=== PATIENT | female | born 1985 | race Caucasian/White ===

== ENCOUNTER → 2019-12-15 09:51 | Outpatient (BNVA) | payer BC, SELFPAY | PROVIDERS: Family Provider Registered Nurse; PCP Registered Nurse; Visit Provider Registered Nurse | DX: R53.83 Other fatigue (principal); Z01.419 Encounter for gynecological examination (general) (routine) without abnormal findings; E66.9 Obesity, unspecified | CPT/HCPCS: 84443; 85025 ==

== ENCOUNTER → 2020-08-30 16:09 | Outpatient (BNVA) | payer BC, SELFPAY | PROVIDERS: Family Provider Registered Nurse; PCP Registered Nurse; Visit Provider Registered Nurse | DX: R50.9 Fever, unspecified (principal) | CPT/HCPCS: 87400 ==

== ENCOUNTER → 2020-10-01 09:22 | Outpatient (BNVA) | payer BC, SELFPAY | PROVIDERS: Family Provider Registered Nurse; PCP Registered Nurse; Visit Provider Registered Nurse | DX: R10.9 Unspecified abdominal pain (principal); N76.0 Acute vaginitis; B96.89 Other specified bacterial agents as the cause of diseases classified elsewhere | CPT/HCPCS: 81000 ==

== ENCOUNTER → 2020-11-19 08:50 | Outpatient (BNVA) | payer BC, SELFPAY | PROVIDERS: Family Provider Registered Nurse; PCP Registered Nurse; Visit Provider Registered Nurse | DX: R68.89 Other general symptoms and signs (principal); K52.9 Noninfective gastroenteritis and colitis, unspecified | CPT/HCPCS: 87400 ==

== ENCOUNTER → 2021-04-14 11:12 | Outpatient (BNVA) | payer BC, SELFPAY | PROVIDERS: Family Provider Registered Nurse; PCP Registered Nurse; Visit Provider Registered Nurse | DX: E53.8 Deficiency of other specified B group vitamins (principal); E55.9 Vitamin D deficiency, unspecified; R53.83 Other fatigue; F41.1 Generalized anxiety disorder | CPT/HCPCS: 82306; 82607 ==

== ENCOUNTER → 2021-07-01 11:13 | Outpatient (BNVA) | payer BC, SELFPAY | PROVIDERS: Family Provider Registered Nurse; PCP Registered Nurse; Visit Provider Registered Nurse | DX: J02.9 Acute pharyngitis, unspecified (principal); R53.83 Other fatigue; R50.9 Fever, unspecified | CPT/HCPCS: 87635; 87880 ==

== ENCOUNTER → 2021-07-11 08:36 | Outpatient (BNVA) | payer BC, SELFPAY | PROVIDERS: Family Provider Registered Nurse; PCP Registered Nurse; Visit Provider Registered Nurse | DX: R50.9 Fever, unspecified (principal); R53.83 Other fatigue; R31.9 Hematuria, unspecified; R39.9 Unspecified symptoms and signs involving the genitourinary system | CPT/HCPCS: 81000; 87086 ==

== ENCOUNTER → 2021-11-07 10:31 | Outpatient (BNVA) | payer BC, SELFPAY | PROVIDERS: Family Provider Registered Nurse; PCP Registered Nurse; Visit Provider Registered Nurse | DX: Z11.52 Encounter for screening for COVID-19 (principal) | CPT/HCPCS: 87635 ==

== ENCOUNTER → 2022-02-15 15:04 | Outpatient (BNVA) | payer BC, SELFPAY | PROVIDERS: Family Provider Registered Nurse; PCP Registered Nurse; Visit Provider Registered Nurse | DX: R10.9 Unspecified abdominal pain (principal); R39.9 Unspecified symptoms and signs involving the genitourinary system | CPT/HCPCS: 81000 ==

== ENCOUNTER → 2022-06-25 12:05 | Outpatient (BNVA) | payer BC, SELFPAY | PROVIDERS: Family Provider Registered Nurse; PCP Registered Nurse; Visit Provider Family Medicine | DX: J32.9 Chronic sinusitis, unspecified (principal); J01.90 Acute sinusitis, unspecified | CPT/HCPCS: 87426 ==

== ENCOUNTER → 2022-07-25 08:50 | Outpatient (BNVA) | payer BC, SELFPAY | PROVIDERS: Family Provider Registered Nurse; PCP Registered Nurse; Visit Provider Obstetrics & Gynecology | DX: N39.46 Mixed incontinence (principal); N95.1 Menopausal and female climacteric states; E89.40 Asymptomatic postprocedural ovarian failure | CPT/HCPCS: 81000 ==

== ENCOUNTER → 2022-10-05 15:29 | Outpatient (BNVA) | payer BC, SELFPAY | PROVIDERS: Family Provider Registered Nurse; PCP Registered Nurse; Visit Provider Registered Nurse | DX: R05.9 Cough, unspecified (principal); B34.9 Viral infection, unspecified | CPT/HCPCS: 87400; 87426 ==

== ENCOUNTER 2022-10-18 13:00 | Observation (INO) | payer BC, OTHER, SELFPAY ==
[2022-10-16 10:25] VITALS: BMI 26.6
[2022-10-16 10:44] LABS: Add Urine Microscopic? NO; Charge for UA Resulting for Rev
[2022-10-16 10:49] LABS: Basophils # 0.1 10^3/uL (0.0-0.1); Basophils % 0.8 %; Eosinophils # 0.2 10^3/uL (0.0-0.8); Eosinophils % 3.9 %; Hematocrit 39.7 % (37.0-47.0); Hemoglobin 12.9 g/dL (11.5-15.3); Lymphocytes # 2.8 10^3/uL (0.8-4.8); Lymphocytes % 47.4 %; Mean Corpuscular HGB Conc 32.5 g/dL (30.0-36.0); Mean Corpuscular Hemoglobin 28.7 pg (28.0-34.0); Mean Corpuscular Volume 88.4 fl (81-99); Mean Platelet Volume 11.5 fL (7.4-10.4); Monocytes # 0.3 10^3/uL (0.2-0.9); Monocytes % 4.6 %; Neutrophils # 2.55 10^3/uL (1.8-7.7); Neutrophils % 43.3 %; Nucleated Red Blood Cells % 0 %; Platelet Count 244 10^3/cmm (130-400); Red Blood Count 4.49 10^6/uL (4.1-5.3); Red Cell Distribution Width 12.8 % (12.1-15.1); White Blood Count 5.9 10^3/uL (4.0-10.0)
[2022-10-16 10:49] LABS: Bilirubin Urine Neg (Negative); Blood Urine Neg (Negative); Glucose Urine UA Norm (Normal); Ketones Urine 1+ (Negative); Leukocyte Esterase Urine Negative (Negative); Nitrate Urine Negative (Negative); Protein Urine Neg (Negative); Urine Appearance Clear (CLEAR); Urine Color Yellow (Yellow); Urobilinogen Urine Norm (Negative); pH Urine 5 (5-7)
--- NOTE | 2022-10-16 11:11 | ANES.PREANE2 ---
Pre-Anesthetic Assessment Height/Weight: Height 1.63 m Weight 70.307 kg Operation Date: 10/18/22 09:50 Proposed Procedures p Sling Single Incision Sling [id number],N39.3(Not Applicable) - Wilbert Sánchez MD Familial anesthetic complications: none Was Beta Vaughn taken within 24 hours: N/A Was Clonidine taken within 24 hours: N/A Social No alcohol and No tobacco Exam alert, oriented x 3, clear to auscultation bilaterally and regular rate & rhythm Airway Submandibular: within normal limits Cervical ROM: within normal limits Mallampati: Class II Dentition: full Pulmonary Asthma Neuropsych Anxiety Anesthetic Plan ASA status: 2 Anesthesia: General Medications/Allergies Home Medications Medication Instructions Recorded Confirmed Last Taken Type estradiol 1 mg tablet 2 mg PO DAILY #90 tabs 07/25/22 10/16/22 10/15/22 Rx estradiol 0.01% (0.1 mg/gram) 1 g vaginal DAILY Surgical 08/11/22 10/16/22 10/15/22 Rx vaginal cream menopause vaginal dryness #42.5 grams tirzepatide 5 mg/0.5 mL 5 mg (0.5 mL) SUBCUT ONCE obesity 09/25/22 10/16/22 10/14/22 Rx subcutaneous pen injector 30 days #4 ea escitalopram oxalate 10 mg tablet 10 mg PO DAILY 10/16/22 10/16/22 10/15/22 History hydroxyzine HCl 25 mg tablet 25 mg PO DAILY 10/16/22 10/16/22 10/15/22 History montelukast 10 mg tablet 10 mg PO DAILY 10/16/22 10/16/22 10/15/22 History oxybutynin chloride 5 mg 5 mg PO DAILY 10/16/22 10/16/22 10/15/22 History tablet,extended release 24 hr Allergies Allergy/AdvReac Type Severity Reaction Status Date / Time hydrocodone Allergy Mild dizziness Verified 10/05/22 15:27 and vomiting Sulfa (Sulfonamide Allergy Mild vomiting Verified 10/05/22 15:27 Antibiotics) adhesive Allergy liquid tape Verified 10/05/22 15:27 morphine Allergy hives, Verified 10/05/22 15:27 dizziness [facility] Anesthesia Medical History Endometriosis Treated by [facility] in 05/2019. Gastroesophageal reflux Surgical menopause Surgical History H/O tubal ligation (10/19/15) Laparoscopic tubal fulguration. Performed by Dr. Young at [facility] [facility] in [place], [place]. Hx of appendectomy S/P laparoscopic assisted vaginal hysterectomy (LAVH) (06/17/19) LAVH with BSO. DX: Endometriosis. Performed by Dr. Young at [facility] in [place], [place]. S/P laparoscopic cholecystectomy (~04/2007) Performed at [facility] in [place], [place] S/P laparoscopy (09/24/18) Laparoscopic cautery of endometriosis. DX: Chronic pelvic pain. Performed by Dr. Young at [facility] [place] in [place], [place]. Findings: Powder burn lesions consistent with endometriosis of the posterior cul-de-sac. S/P tonsillectomy (~06/2013) Performed at [facility] in [place], [place]. Family History Father Hypertension Mother Hypertension FH: hypercholesterolemia Grandmother Diabetes maternal and paternal Cancer colon cancer, maternal Clotting disorder maternal Stroke maternal Heart disease maternal and paternal Grandfather Heart disease maternal and paternal Colon cancer maternal great, 80 Denies family history of Ovarian cancer Breast cancer Anesthesia complication Bleeding disorder Uterine cancer Social History Smoking and tobacco status: never smoked Alcohol intake: never Data Anesthesia 10/16/22 10:33 10/16/22 10:33 Short CBC 10/16/22 Range/Units 10:33 WBC 5.9 (4.0-10.0) 10^3/uL Hgb 12.9 (11.5-15.3) g/dL Hct 39.7 (37.0-47.0) % MCV 88.4 (81-99) fl Plt Count 244 (130-400) 10^3/cmm Neut % (Auto) 43.3 % Neut # (Auto) 2.55 (1.8-7.7) 10^3/uL Urine 10/16/22 Range/Units 10:35 Urine Color Yellow (Yellow) Urine Appearance Clear (CLEAR) Urine pH 5 (5-7) Ur Specific [place] 1.020 (1.005-1.030) Urine Protein Neg (Negative) Urine Glucose (UA) Norm (Normal) Urine Ketones 1+ H (Negative) Urine Nitrate Negative (Negative) Urine Bilirubin Neg (Negative) Ur Leukocyte Esterase Negative (Negative) Cardiac Studies: No Data to Display
[2022-10-16 11:12] LABS: Alanine Aminotransferase 13 U/L (0-33); Albumin Level 4.4 g/dL (3.5-5.2); Alkaline Phosphatase 70 U/L (35-105); Aspartate Amino Transferase 13 U/L (0-32); Blood Urea Nitrogen 9 mg/dL (6-20); Calcium 9.5 mg/dL (8.5-10.5); Carbon Dioxide 23 mmol/L (22-29); Chloride 105 mmol/L (98-107); Globulin 2.7 g/dL (1.3-4.6); Glomerular Filtration Rate 112.5 mL/min (90-130); Glucose 85 mg/dL (65-115); Osmolality Calculated 284 mOsm/kg (285-295); Sodium 138 mmol/L (136-145); Total Bilirubin 0.7 mg/dL (0.15-1.2); Total Protein 7.1 g/dL (6.6-8.7)
[2022-10-18] VITALS (18 sets, daily range): BP systolic 92–126; BP diastolic 59–93; PULSE 60–88; RESP 12–20; TEMP 36.1–36.5; O2SAT 96–100
--- NOTE | 2022-10-18 08:38 | P.ANESUD_ITS ---
Pre-Anesthetic Update Pre-Anesthetic Assessment: Date of Surgery/Procedure: 10/18/22 Preop Karen gnosis: Mixed urinary incontinence Proposed Procedure: Operation Date: 10/18/22 09:40 Proposed Procedures p Sling Single Incision Sling [id number],N39.3(Not Applicable) - Wilbert Sánchez MD Any changes to Pre-Anesthetic Assessment?: No Last Intake: Intake Last Liquid Date 10/17/22 Last Liquid Time 23:30 Last Solid Date 10/17/22 Last Solid Time 19:00 Labs Last 48hrs: Short CBC 10/16/22 Range/Units 10:33 WBC 5.9 (4.0-10.0) 10^3/ uL Hgb 12.9 (11.5-15.3) g/dL Hct 39.7 (37.0-47.0) % MCV 88.4 (81-99) fl Plt Count 244 (130-400) 10^3/c mm Neut % (Auto) 43.3 % Neut # (Auto) 2.55 (1.8-7.7) 10^3/u L BMP 10/16/22 10:33 Sodium 138 Potassium 4.0 Chloride 105 Carbon Dioxide 23 BUN 9 Creatinine 0.6 Glucose 85 Calcium 9.5 Liver Function 10/16/22 Range/Units 10:33 Total Bilirubin 0.7 (0.15-1.2) mg/dL AST 13 (0-32) U/L ALT 13 (0-33) U/L Alkaline Phosphata se 70 (35-105) U/L Albumin 4.4 (3.5-5.2) g/dL Urine 10/16/22 Range/Units 10:35 Urine Color Yellow (Yellow) Urine Appearance Clear (CLEAR) Urine pH 5 (5-7) Ur Specific [place]it y 1.020 (1.005-1.030) Urine Protein Neg (Negative) Urine Glucose (UA) Norm (Normal) Urine Ketones 1+ H (Negative) Urine Nitrate Negative (Negative) Urine Bilirubin Neg (Negative) Ur Leukocyte Annie ase Negative (Negative) Blood Bank 10/16/22 10:33 Blood Type A Negative Rho(D) Type Negative Antibody Screen Negative Vitals: Temperature 97.7 F 10/18/22 08:26 Temperature Source Temporal Artery S can 10/18/22 08:26 Pulse Rate 87 10/18/22 08:26 Respiratory Rate 16 10/18/22 08:26 Blood Pressure 108/81 10/18/22 08:26 Blood Pressure Kaylie n 90 10/18/22 08:26 Pulse Oximetry 97 10/18/22 08:26 Oxygen Delivery Me thod 10/18/22 08:26 Exam: Pre-Anes Outpt Exam: alert, oriented x 3, clear to auscultation bilaterally and regular rate & rhythm Cardiac Studies: No Data to Display
[2022-10-18] MEDS: sodium chloride 0.9% 1,000 ML 30 ML IV (08:41)
[2022-10-18] MEDS: ondansetron 2 mg/ML SDV 2 mL 4 MG IVP (08:44)
[2022-10-18] MEDS: diphenhydrAMINE 50 mg/mL SDV 1mL 12.5 MG IVP (08:46)
[2022-10-18] MEDS: scopolamine 1.5 Patch 1 PATCH TRANSDERMA (08:48)
--- NOTE | 2022-10-18 08:59 | W.PM.OPSUD ---
Surgery/Procedure H&P Update DATE OF PROCEDURE: October 18, 2022 DATE H&P PERFORMED: 10/16/22 H&P UPDATE INFORMATION: I have reviewed H&P completed within last 30 days, I have examined patient prior to procedure and No changes to prior documentation PREOP DIAGNOSIS: Mixed urinary incontinence PLANNED PROCEDURE: Operation Date: 10/18/22 09:40 Proposed Procedures p Sling Single Incision Sling [id number],N39.3(Not Applicable) - Wilbert Sánchez MD
[2022-10-18] MEDS: ceFAZolin 2,000 MG in sodium chloride 0.9% (plus) 50 ML 100 MG IV (11:00)
--- NOTE | 2022-10-18 11:52 | P.OP_ITS ---
Operative Report Date of procedure: October 18, 2022 Pre-op diagnosis: Preop Diagnosis Mixed urinary incontinence Post-op diagnosis: Same as above Post-op findings: Urethral hypermobility Procedure done: Single incision mid urethral sling Implants: Coloplast Altis sling Surgeon: Wilbert Sánchez MD Estimated blood loss (mL): 10 IV fluids (mL): 700 Urine output (mL): 50 Procedure: After obtaining informed consent, the patient was taken to the operating room and placed in the supine position, given general anesthesia, and prepped and draped in sterile fashion. The abdomen, vulva and vagina were prepped and draped in a sterile manner. A time out procedure was performed. The anterior vaginal mucosa beneath the midurethra was infiltrated with 0.5% Marcaine with epinephrine. A vertical midline incision was made beneath the midurethra, nearly 1.5 cm length. Careful submucosal dissection was performed bilaterally up to the interior portion of the inferior pubic ramus. The insertion of adduct or longus tendon on the patient?s pubic ramus was identified as reference land stephan. Palpated the notch along the internal edge of ischiopubic ramus where the adductor longus tendon and the inferior pubic ramus meet. The Altis single incision sling (SIS) was selected. Then the needle of the SIS inserted aiming at the location of this notch. One of the integrated self-fixating tips place onto the needle by sliding it over the end of the needle. The needle/sling assembly was inserted toward the location of identified reference notch making sure that the flat of the handle is perpendicular to the desired path. The needle was tracked along the posterior surface of the ischiopubic ramus until the midline stephan on the mesh is approximately at the midline position under the urethra. The needle was removed and the same was repeated on the contralateral side until the appropriate sling tension under the urethra was achieved ensuring that the mesh lays flat. The needle was removed and vaginal incision was closed in a running interlocking fashion with 2-0 Vicryl. Then the Jennings catheter was removed and cystoscope was inserted. The bladder was filled with sterile water. Complete evaluation of the bladder mucosa was performed noting no lacerations, dimpling, tears, bleeding of the mucosa or muscular layers. Both ureteral orifices were identified. Prompt excretion of urine from both ureteral orifices was noted. Cystoscope was withdrawn. The Jennings catheter was replaced. Excellent hemostasis was obtained. A vaginal pack is placed overnight as postoperative support for the vaginal tissues after graft placement and closure of vaginal incisions. Sponge, lap, needle, and instrument counts were correct times three. The patient was taken to the recovery room, awake and in stable condition.
[2022-10-18] MEDS: fentaNYL 50 mcg/mL INJ 2mL 100 MCG IVP (12:33)
[2022-10-18] MEDS: ketorolac 30 mg/mL INJ IVP ×2 (14:26→20:02)
[2022-10-18] MEDS: dextrose 5%-lactated ringers 1,000 ML 125 ML IV ×2 (14:26→22:07)
--- NOTE | 2022-10-18 15:30 | ANE.PACU2 ---
Inpatient post-anesthesia follow up: Airway intact: Yes Vital signs: Temperature 97.0 F Pulse Rate 63 Respiratory Rate 15 Blood Pressure 104/69 Pulse Oximetry 100 Oxygen Delivery Me thod Room Air Oxygen Flow Rate Fraction of Inspir ed Oxygen Hydration adequate: Yes Nausea and vomiting: No Pain level: 2 Mental status: Baseline
[2022-10-18] MEDS: docusate sodium 100 mg Capsule PO (18:40)
[2022-10-18] MEDS: HYDROcodone-acetaminophen 5-325 mg Tablet PO (18:40)
[2022-10-18] MEDS: hyDROXYzine 25 mg Capsule PO (18:40)
--- NOTE | 2022-10-18 19:25 | PC.NURSE ---
184 THIS STRINGED INSTRUMENT REPAIRER WAS TALKING WITH PATIENT AND REMEMBERED THAT SHE HAD TO 2 IVS IN HER RIGHT HAND. THE ONE IN WRIST AREA HAS IV FLUIDS RUNNING AND SO THIS STRINGED INSTRUMENT REPAIRER LOOSENED CAP ON THE ONE IN HAND AND WHITE LIQUID CAME OUT OF J-LOOP SO THIS STRINGED INSTRUMENT REPAIRER JUST PUT CAP BACK ON AND TOLD HER THAT I WAS JUST GOING TO TAKE IT OUT. SO IV WAS REMOVED WITH CATH INTACT.
[2022-10-18] MEDS: acetaminophen 325 mg Tablet 650 MG PO (22:07)
[2022-10-19] MEDS: ketorolac 30 mg/mL INJ IVP (02:10)
[2022-10-19 05:20] VITALS: BP 99/64; PULSE 75; RESP 17; TEMP 36.9
[2022-10-19] MEDS: acetaminophen 325 mg Tablet 650 MG PO ×3 (05:34→21:18)
[2022-10-19 05:45] LABS: Hemoglobin 11.1 g/dL (11.5-15.3); Mean Corpuscular HGB Conc 33.6 g/dL (30.0-36.0); Mean Corpuscular Hemoglobin 29.4 pg (28.0-34.0); Mean Corpuscular Volume 87.3 fl (81-99); Mean Platelet Volume 11.6 fL (7.4-10.4); Platelet Count 217 10^3/cmm (130-400); Red Blood Count 3.78 10^6/uL (4.1-5.3); Red Cell Distribution Width 12.8 % (12.1-15.1); White Blood Count 9.7 10^3/uL (4.0-10.0)
[2022-10-19 07:40] VITALS: BP 101/65; PULSE 61; RESP 16; TEMP 36.7; O2SAT 100
--- NOTE | 2022-10-19 09:39 | PM.OBGYDC ---
Discharge Providers SECURITY AUDITOR Date of Admission: 10/18/22 13:00 Date of Discharge: 10/20/22 Attending Provider at Admission: Wilbert Sánchez MD Attending Provider at Discharge: Wilbert Sánchez MD Primary SECURITY AUDITOR: Wilbert Sánchez MD Primary Care Provider: GERARDO Geiger Diagnoses at Discharge Discharge Diagnosis (1) Urinary incontinence, mixed: Status: Acute Reason for Visit Reason for Visit: N39.3 Hospital Course Hospital Course Mrs. Benjamin 37-year-old female with mixed urinary incontinence. Admitted for planned mid urethral single incision sling. Procedure was performed without complication. Overnight observation was uneventful. She is afebrile and hemodynamically stable postoperative day 1. Tolerating diet well. Ambulating without difficulty. Counseled regarding pelvic rest for 6 weeks (no sex, no tampons, no vaginal douches). Return to the emergency room if any fever, increased bleeding or pain. The patient's PVR was elevated. She was counseled regarding going home with a Jennings catheter and to return Sunday to discontinue the Jennings catheter the clinic. The patient declined Jennings catheter, and requested to stay 1 more night with Jennings to rest her bladder because she does not want to go home with a Jennings cath. Physical Exam Narrative: GA: Alert and oriented ?3. HEENT: WNL. Heart: Regular rate and rhythm. Lungs: Clear to auscultation bilaterally. Abdomen: Bowel sounds present, nontender. CORN SHREDDER: Spotting bleeding. Extremities: No edema, no cyanosis, no calves pain. Urinary Catheter Management: Jennings: Cath Placed During This Visit: yes, but has since been removed by the nurse Reason for Continuing Indwelling Catheter: Decision to DC Catheter Urinary Catheter Date of Insertion: 10/18/22 Urinary Catheter Time of Insertion: 11:30 Date Urinary Catheter Removed: 10/19/22 Time Urinary Catheter Discontinued: 05:27 History History History 5 Term 3 0 Miscarriages/Ectopic 2 Living Children 3 Discharge Data Studies Completed and Pending Laboratory Results WBC 9.7 10^3/uL (4.0-10.0) 10/19/22 05:34 RBC 3.78 10^6/uL (4.1-5.3) L 10/19/22 05:34 Hgb 11.1 g/dL (11.5-15.3) L 10/19/22 05:34 Hct 33.0 % (37.0-47.0) L 10/19/22 05:34 MCV 87.3 fl (81-99) 10/19/22 05:34 MCH 29.4 pg (28.0-34.0) 10/19/22 05:34 MCHC 33.6 g/dL (30.0-36.0) 10/19/22 05:34 RDW 12.8 % (12.1-15.1) 10/19/22 05:34 Plt Count 217 10^3/cmm (130-400) 10/19/22 05:34 MPV 11.6 fL (7.4-10.4) H 10/19/22 05:34 Neut % (Auto) 43.3 % 10/16/22 10:33 Lymph % (Auto) 47.4 % 10/16/22 10:33 [place] % (Auto) 4.6 % 10/16/22 10:33 Eos % (Auto) 3.9 % 10/16/22 10:33 Baso % (Auto) 0.8 % 10/16/22 10:33 Neut # (Auto) 2.55 10^3/uL (1.8-7.7) 10/16/22 10:33 Lymph # (Auto) 2.8 10^3/uL (0.8-4.8) 10/16/22 10:33 [place] # (Auto) 0.3 10^3/uL (0.2-0.9) 10/16/22 10:33 Eos # (Auto) 0.2 10^3/uL (0.0-0.8) 10/16/22 10:33 Baso # (Auto) 0.1 10^3/uL (0.0-0.1) 10/16/22 10:33 Nucleated RBC % (auto) 0 % 10/16/22 10:33 Nucleated RBCs # 0.0 /100WBC 10/16/22 10:33 Sodium 138 mmol/L (136-145) 10/16/22 10:33 Potassium 4.0 mmol/L (3.5-5.1) 10/16/22 10:33 Chloride 105 mmol/L (98-107) 10/16/22 10:33 Carbon Dioxide 23 mmol/L (22-29) 10/16/22 10:33 Anion Gap 14.0 (5-19) 10/16/22 10:33 BUN 9 mg/dL (6-20) 10/16/22 10:33 Creatinine 0.6 mg/dL (0.5-0.9) 10/16/22 10:33 GFR Calculation 112.5 mL/min (90-130) 10/16/22 10:33 Glucose 85 mg/dL (65-115) 10/16/22 10:33 Calculated Osmolality 284 mOsm/kg (285-295) L 10/16/22 10:33 Calcium 9.5 mg/dL (8.5-10.5) 10/16/22 10:33 Total Bilirubin 0.7 mg/dL (0.15-1.2) 10/16/22 10:33 AST 13 U/L (0-32) 10/16/22 10:33 ALT 13 U/L (0-33) 10/16/22 10:33 Alkaline Phosphatase 70 U/L (35-105) 10/16/22 10:33 Total Protein 7.1 g/dL (6.6-8.7) 10/16/22 10:33 Albumin 4.4 g/dL (3.5-5.2) 10/16/22 10:33 Globulin 2.7 g/dL (1.3-4.6) 10/16/22 10:33 Urine Color Yellow (Yellow) 10/16/22 10:35 Urine Appearance Clear (CLEAR) 10/16/22 10:35 Urine pH 5 (5-7) 10/16/22 10:35 Ur Specific [place] 1.020 (1.005-1.030) 10/16/22 10:35 Urine Protein Neg (Negative) 10/16/22 10:35 Urine Glucose (UA) Norm (Normal) 10/16/22 10:35 Urine Ketones 1+ (Negative) H 10/16/22 10:35 Urine Blood Neg (Negative) 10/16/22 10:35 Urine Nitrate Negative (Negative) 10/16/22 10:35 Urine Bilirubin Neg (Negative) 10/16/22 10:35 Urine Urobilinogen Norm mg/dL (Negative) 10/16/22 10:35 Ur Leukocyte Esterase Negative (Negative) 10/16/22 10:35 Blood Type A Negative 10/16/22 10:33 Rho(D) Type Negative 10/16/22 10:33 Antibody Screen Negative 10/16/22 10:33 Vitals Last Vital Signs Temp 98.1 F 10/19/22 07:40 Pulse 61 10/19/22 07:40 Resp 16 10/19/22 07:40 BP 101/65 10/19/22 07:40 Pulse Ox 100 10/19/22 07:40 O2 Del Method 10/19/22 07:40 Discharge Plan Discharge Patient Disposition: Home Condition: Stable Prescriptions: New acetaminophen 325 mg capsule 325 mg PO Q4H PRN (Reason: fever or postoperative pain) Qty: 60 0RF ibuprofen 800 mg tablet 800 mg PO TID PRN (Reason: pain) Qty: 60 0RF Continued estradiol 0.01 % (0.1 mg/gram) cream 1 g vaginal DAILY Qty: 42.5 2RF Rx Instructions: one applicator full nightly for 1 month then twice a week estradiol 1 mg tablet 2 mg PO DAILY Qty: 90 3RF tirzepatide 5 mg/0.5 mL pen injector 5 mg SUBCUT ONCE 30 Days Qty: 4 0RF oxybutynin chloride 5 mg tablet extended release 24hr 5 mg PO DAILY Rx Instructions: TAKE 1 TABLET BY MOUTH ONCE DAILY FOR MIXED INCONTINENCE montelukast 10 mg tablet 10 mg PO DAILY Rx Instructions: Take 1 tablet by mouth once daily hydroxyzine HCl 25 mg tablet 25 mg PO DAILY Rx Instructions: TAKE 1 TABLET BY MOUTH TWICE DAILY NEEDED FOR ITCHING escitalopram oxalate 10 mg tablet 10 mg PO DAILY Rx Instructions: Take 1 tablet by mouth once daily Discharge Orders: Discharge Order (Routine); Ordered 10/20/22 Ordered By: Wilbert Sánchez Referrals: Wilbert Sánchez MD [Physician] - 11/01/22 10:30 am (6 week follow up 12/01/22@1100 ) Discharge Diet: Advance as tolerated Discharge Activity: Limit activity as instructed Patient Instructions: Ibuprofen (By mouth), OB Discharge Report, OB Food/Drug Interaction Guide, Opioid Safety Activity Restrictions/Additional Instructions: 1. Please call [facility] clinic on next working day to make your post-operative appointment in 2 weeks. 2. Please stay home until you come back to the clinic on first post-operative check up. 3. Please follow instructions on your medications CAREFULLY. 4. If you have abdominal incision, do not cover it unless dressing is necessary because of drainage. OK to shower, but avoid bath. Leave steri-strips until they fall off. If they are still on one week after surgery, you may remove them. 5. If you had vaginal surgery or vaginal repair, Dr. Sánchez may instruct you to take SITZ bath. 6. Yellow, blood tinged odorous vaginal discharge is usually normal after hysterectomy or vaginal surgeries. 7. No sexual intercourse, tampons, or douches until you are completely released from the post-operative care. 8. Avoid constipation by eating right and maybe using some Metamucil or Milk of Magnesia. 9. All prescription refills are given during the working hours. Please do no wait till it runs out. Call the clinic at [phone] before your medication runs out. The clinic will get in touch with your doctor to prescribe medications if necessary. 10. Please remain within 40 mile radius from our hospital because emergencies do happen now and then during the post-operative period. 11. If you have stairs at home, take one step at a time slowly and minimize the number of trips. It helps to stay in one floor for the next few days. No lifting except what you can lift by one hand until you are released from the post-operative care. 12. Driving is discouraged until you are well healed. It may be 3-4 weeks before you feel strong enough to drive. You should be able to turn and look through the rear window without pain and you should be able to push the brake pedal very hard without pain before you drive. No fast rules, but SAFETY should be your primary concern. DO NOT drive if you are on sedating medications such as narcotics. 13. Call the clinic (during working hours) to make urgent appointment or go to the Emergency room, if any of the following occurs: i. Vaginal bleeding becomes heavy, more than a period. ii. Incision becomes red and sore, or drains pus. iii. Your temperature is over 100.4 or you have chill. iv. IV site becomes red and swollen (a little ``knot?? is usually OK) v. Persistent nausea and vomiting vi. Persistent constipation or diarrhea vii. Rash or allergic reaction to medications. Discharge Attestations SECURITY AUDITOR Time Spent in Discharge Care*: greater than 30 min Coding Level of Care Code Acute System Support Developer for Chg Fwd Diagnoses Urinary incontinence, mixed N39.46
[2022-10-19] MEDS: escitalopram 10 mg Tablet PO (10:33)
[2022-10-19] MEDS: ibuprofen 800 mg tablet PO ×2 (10:33→15:58)
[2022-10-19] MEDS: docusate sodium 100 mg Capsule PO ×2 (10:33→17:34)
[2022-10-19] MEDS: estradiol 1 mg Tablet 2 MG PO (10:34)
[2022-10-19] MEDS: oxybutynin chloride XL 5 MG TABLET PO (10:34)
[2022-10-19] MEDS: montelukast sodium 10 mg Tablet PO (10:34)
[2022-10-19 15:58] VITALS: BP 113/76; PULSE 67; RESP 16; TEMP 36.8; O2SAT 98
[2022-10-19] MEDS: nitrofurantoin SR (BID) 100 mg Capsule PO (21:18)
[2022-10-19 22:06] VITALS: BP 118/78; PULSE 16; RESP 67; TEMP 36.9
[2022-10-19] MEDS: hyDROXYzine 25 mg Capsule PO (22:08)
[2022-10-20] MEDS: ibuprofen 800 mg tablet PO (02:03)
[2022-10-20 04:40] VITALS: BP 110/71; PULSE 73; RESP 16; TEMP 36.8
[2022-10-20] MEDS: acetaminophen 325 mg Tablet 650 MG PO (06:29)
[2022-10-20] MEDS: ondansetron 4 MG Tablet PO (06:56)
--- NOTE | 2022-10-20 07:39 | P.SS_ITS ---
Short Stay Summary Providers Date of Admit/Discharge: 10/20/22 Attending Provider: Wilbert Sánchez MD Primary Care Provider: GERARDO Geiger Chief Complaint: N39.3 HPI History of Present Illness Brennan Benjamin is a 37 year old female with mixed urinary incontinence admitted for planned single incision mid urethral sling. Overnight observation was uneventful. However postop PVR following morning was elevated. The patient refused to go home with a Jennings catheter and requested to stay 1 more night to rest the bladder longer because she does not want to go home with a Jennings catheter. Review of Systems General: Reports: 10 or more systems reviewed and unremarkable except in HPI and below Const: Denies: fever(s) or chills ENMT: Denies: throat pain Card: Denies: chest pain Resp: Denies: dyspnea, productive cough or non-productive cough GI: Denies: abdominal pain : Reports: vaginal bleeding; Denies: flank pain, difficulty voiding, dysuria, urinary frequency, urinary urgency, urinary incontinence, genital lesions, genital pruritis, vaginal dryne ss, vaginal odor, vaginal discharge, dysmenorrhea, irregular period, metrorrhagia, amenorrhea, pelvic pain, prolapse symptoms or dyspareunia Home Meds/Allergies Home Medications and Allergies Home Medications Medication Instructions Recorded Confirmed Type escitalopram oxalate 10 mg tablet 10 mg PO DAILY 10/16/22 10/18/22 History hydroxyzine HCl 25 mg tablet 25 mg PO DAILY 10/16/22 10/18/22 History montelukast 10 mg tablet 10 mg PO DAILY 10/16/22 10/18/22 History oxybutynin chloride 5 mg 5 mg PO DAILY 10/16/22 10/18/22 History tablet,extended release 24 hr Allergies Allergy/AdvReac Type Severity Reaction Status Date / Time hydrocodone Allergy Mild dizziness Verified 10/05/22 15:27 and vomiting Sulfa (Sulfonamide Allergy Mild vomiting Verified 10/05/22 15:27 Antibiotics) adhesive Allergy liquid tape Verified 10/05/22 15:27 morphine Allergy hives, Verified 10/05/22 15:27 dizziness PFSH Acute PFSH: Medical History (Updated 10/19/22 @ 09:44 by Wilbert Sánchez MD) Endometriosis Treated by [facility]/BS[facility] in 05/2019. Gastroesophageal reflux Surgical menopause Surgical History H/O tubal ligation (10/19/15) Laparoscopic tubal fulguration. Performed by Dr. Young at [facility] in [place], [place]. Hx of appendectomy S/P laparoscopic assisted vaginal hysterectomy (LAVH) (06/17/19) LAVH with BSO. DX: Endometriosis. Performed by Dr. Young at [facility] in [place], [place]. S/P laparoscopic cholecystectomy (~04/2007) Performed at [facility] in [place], [place] S/P laparoscopy (09/24/18) Laparoscopic cautery of endometriosis. DX: Chronic pelvic pain. Performed by Dr. Young at [facility] in [place], [place]. Findings: Powder burn lesions consistent with endometriosis of the posterior cul-de-sac. S/P tonsillectomy (~06/2013) Performed at [facility] in [place], [place]. Family History Father Hypertension Mother Hypertension FH: hypercholesterolemia Grandmother Diabetes maternal and paternal Cancer colon cancer, maternal Clotting disorder maternal Stroke maternal Heart disease maternal and paternal Grandfather Heart disease maternal and paternal Colon cancer maternal great, 80 Denies family history of Ovarian cancer Breast cancer Anesthesia complication Bleeding disorder Uterine cancer Social History Smoking and tobacco status: never smoked Alcohol intake: never Vitals/I&O/Wt Last Vital Signs Temp 98.2 F 10/20/22 04:40 Pulse 73 10/20/22 04:40 Resp 16 10/20/22 04:40 BP 110/71 10/20/22 04:40 Pulse Ox 98 10/19/22 15:58 O2 Del Method 10/19/22 15:58 10/19/22 10/20/22 10/20/22 22:59 06:59 14:59 Intake Total 1000 / 1000 400 / 1400 Output Total 900 / 1650 775 / 2425 Balance 100 / -650 -375 / -1025 Physical Exam Narrative: GA: Alert and oriented ?3. HEENT: WNL. Heart: Regular rate and rhythm. Lungs: Clear to auscultation bilaterally. Abdomen: Bowel sounds present, nontender. DRAIN TILER: Spotting bleeding. Extremities: No edema, no cyanosis, no calves pain. Urinary Catheter Management: Jennings: Cath Placed During This Visit: yes, but has since been removed by the nurse Reason for Continuing Indwelling Catheter: Decision to DC Catheter Urinary Catheter Date of Insertion: 10/19/22 Urinary Catheter Time of Insertion: 10:18 Date Urinary Catheter Removed: 10/20/22 Time Urinary Catheter Discontinued: 04:40 Hospital Course Hospital Course Mrs. Benjamin 37-year-old female with mixed urinary incontinence. Admitted for planned mid urethral single incision sling. Procedure was performed without complication. Overnight observation was uneventful. She is afebrile and hemodynamically stable postoperative day 1. Tolerating diet well. Ambulating without difficulty. Counseled regarding pelvic rest for 6 weeks (no sex, no tampons, no vaginal douches). Return to the emergency room if any fever, increased bleeding or pain. The patient's PVR was elevated. She was counseled regarding going home with a Jennings catheter and to return Sunday to discontinue the Jennings catheter the c linic. The patient declined Jennings catheter, and requested to stay 1 more night with Jennings to rest her bladder because she does not want to go home with a Jennings cath. Diagnoses at Discharge Discharge Diagnosis (1) Urinary incontinence, mixed: Details from hospital stay: This is [facility] admitted for for planned single incision mid urethral sling due to mixed urinary incontinence. Overnight observation uneventful. Following morning PVR was elevated and the patient refused to go home with a Jennings catheter, and requested to stay an additional night to rest the bladder longer because she does not want to go home with a Jennings catheter. PVR now within normal limits. Patient was counseled again regarding pelvic rest for 6 weeks (no sex, no tampons, no vaginal douches). Return to the emergency room if any fever, increased bleeding or pain. Status: Acute Discharge Plan Discharge Patient Disposition: Home Condition: Stable Prescriptions: New acetaminophen 325 mg capsule 325 mg PO Q4H PRN (Reason: fever or postoperative pain) Qty: 60 0RF ibuprofen 800 mg tablet 800 mg PO TID PRN (Reason: pain) Qty: 60 0RF Continued estradiol 0.01 % (0.1 mg/gram) cream 1 g vaginal DAILY Qty: 42.5 2RF Rx Instructions: one applicator full nightly for 1 month then twice a week estradiol 1 mg tablet 2 mg PO DAILY Qty: 90 3RF tirzepatide 5 mg/0.5 mL pen injector 5 mg SUBCUT ONCE 30 Days Qty: 4 0RF oxybutynin chloride 5 mg tablet extended release 24hr 5 mg PO DAILY Rx Instructions: TAKE 1 TABLET BY MOUTH ONCE DAILY FOR MIXED INCONTINENCE montelukast 10 mg tablet 10 mg PO DAILY Rx Instructions: Take 1 tablet by mouth once daily hydroxyzine HCl 25 mg tablet 25 mg PO DAILY Rx Instructions: TAKE 1 TABLET BY MOUTH TWICE DAILY NEEDED FOR ITCHING escitalopram oxalate 10 mg tablet 10 mg PO DAILY Rx Instructions: Take 1 tablet by mouth once daily Discharge Orders: Discharge Order (Routine); Ordered 10/20/22 Ordered By: Wilbert Sánchez Referrals: Wilbert Sánchez MD [Physician] - 11/01/22 10:30 am (6 week follow up 12/01/22@1100 ) Discharge Diet: Advance as tolerated Discharge Activity: Limit activity as instructed Patient Instructions: Ibuprofen (By mouth), OB Discharge Report, OB Food/Drug Interaction Guide, Opioid Safety Activity Restrictions/Additional Instructions: 1. Please call [facility] on next working day to make your post-operative appointment in 2 weeks. 2. Please stay home until you come back to the clinic on first post-operative check up. 3. Please follow instructions on your medications CAREFULLY. 4. If you have abdominal incision, do not cover it unless dressing is necessary because of drainage. OK to shower, but avoid bath. Leave steri-strips until they fall off. If they are still on one week after surgery, you may remove them. 5. If you had vaginal surgery or vaginal repair, Dr. Sánchez may instruct you to take SITZ bath. 6. Yellow, blood tinged odorous vaginal discharge is usually normal after hysterectomy or vaginal surgeries. 7. No sexual intercourse, tampons, or douches until you are completely released from the post-operative care. 8. Avoid constipation by eating right and maybe using some Metamucil or Milk of Magnesia. 9. All prescription refills are given during the working hours. Please do no wait till it runs out. Call the clinic at [phone] before your medication runs out. The clinic will get in touch with your doctor to prescribe medications if necessary. 10. Please remain within 40 mile radius from our hospital because emergencies do happen now and then during the post-operative period. 11. If you have stairs at home, take one step at a time slowly and minimize the number of trips. It helps to stay in one floor for the next few days. No lifting except what you can lift by one hand until you are released from the post-operative care. 12. Driving is discouraged until you are well healed. It may be 3-4 weeks before you feel strong enough to drive. You should be able to turn and look through the rear window without pain and you should be able to push the brake pedal very hard without pain before you drive. No fast rules, but SAFETY should be your primary concern. DO NOT drive if you are on sedating medications such as narcotics. 13. Call the clinic (during working hours) to make urgent appointment or go to the Emergency room, if any of the following occurs: i. Vaginal bleeding becomes heavy, more than a period. ii. Incision becomes red and sore, or drains pus. iii. Your temperature is over 100.4 or you have chill. iv. IV site becomes red and swollen (a little ``knot?? is usually OK) v. Persistent nausea and vomiting vi. Persistent constipation or diarrhea vii. Rash or allergic reaction to medications. Attestations Medical Necessity Statement*: In my professional opinion per admitting diagnosis Time Spent in Patient Care*: greater than 30 min Quality Metrics Clinical Quality Measures: [ No reported AMI, CVA or VTE this stay ] Coding Level of Care Code Acute Attraction Worker for g Fwd Diagnoses Urinary incontinence, mixed N39.46
[2022-10-20 08:59] VITALS: BP 118/84; PULSE 70; RESP 14; TEMP 36.6; O2SAT 100
== END 2022-10-20 09:05 | disposition home or self-care (01) ==
LOC: OBGYN 13:41
PROVIDERS: Admitting Provider Obstetrics & Gynecology; PCP Registered Nurse; Visit Provider Obstetrics & Gynecology
PROC: (CPT 57288; principal; 2022-10-18 09:30)
PROC: 0TJB8ZZ Inspection of Bladder, Via Natural or Artificial Opening Endoscopic (ICD-10-PCS; CPT 52000; 2022-10-18 09:30)
DX: N39.46 Mixed incontinence (principal); N36.41 Hypermobility of urethra
CPT/HCPCS: 57288 ×2; 36415; 51702; 51798; 80053; 81003; 85025; 85027; 86850; 86900; 96374; 96376; C1713; G0378; J0690; J1100; J1200; J1885; J2250; J2405; J2704; J2710; J3010; J3490; J7030; J7121; J8499; Q0162

== ENCOUNTER → 2023-11-15 11:58 | Outpatient (BNVA) | payer OTHER, SELFPAY | PROVIDERS: PCP Registered Nurse; Visit Provider Registered Nurse | DX: I10 Essential (primary) hypertension (principal); Z79.899 Other long term (current) drug therapy | CPT/HCPCS: 80053; 82607; 84443; 85025 ==

== ENCOUNTER → 2024-03-12 08:21 | Outpatient (BNVA) | payer OTHER, SELFPAY | PROVIDERS: PCP Registered Nurse; Visit Provider Registered Nurse | DX: R30.0 Dysuria (principal); N39.0 Urinary tract infection, site not specified | CPT/HCPCS: 81000; 87086 ==

== ENCOUNTER 2024-09-30 09:32 | Outpatient (CLI) | payer OTHER, SELFPAY ==
--- NOTE | 2024-09-30 10:00 | US_ITS ---
WS: [id number] Ultrasound soft tissue neck INDICATION: Dysphagia TECHNIQUE: Ultrasound soft tissue area of concern FINDINGS: Ultrasound soft tissue area of concern in the central neck and between the clavicles. Emeli l underlying subcutaneous soft tissues. Normal visualized thyroid tissue. No evidence of mass or lesi on in the area of concern. No suspicious abnormalities. US/US soft tissue head neck [id number] IMPRESSION: No suspicious abnormalities area of concern
== END 2024-09-30 09:33 | disposition home or self-care (01) ==
LOC: RAD 09:34
PROVIDERS: PCP Registered Nurse; Visit Provider Registered Nurse
DX: R09.A2 Foreign body sensation, throat (principal)
CPT/HCPCS: 76536

== ENCOUNTER 2024-12-22 10:50 | Outpatient (CLI) | payer OTHER, SELFPAY ==
--- NOTE | 2024-12-22 10:53 | CT_ITS ---
WS: [id number] CT NECK TECHNIQUE: Contrast-enhanced CT of the neck with coronal and sagittal reformatted images. CLINICAL INFORMATION: FOCAL THROAT PAIN COMPARISON: None. DLP: 175.[address] scans at [facility] use at least one of these dose optimization techniques: automated exposure control; mA and/or kV adjustment per patient size (includes targeted exams where dose is matched to clinical indication); or iterative reconstruction. FINDINGS: Paranasal sinuses are well aerated. Mastoid air cells are well aerated. Normal posterior nasopharynx. Normal parapharyngeal fat. Parotid glands are normal. Submandibular glands are normal. A few tiny thyroid nodules. Normal parapharyngeal fat. No evidence of supraglottic or glottic mass. Normal subglot tic airway. Lung apices are well aerated. No cervical lymphadenopathy. Normal cervical spine alignment. No other suspicious findings. CT/CT neck w con* [id number] IMPRESSION: 1. Normal salivary glands. 2. No evidence of supraglottic or glottic mass. 3. Normal posterior nasopharynx. 4. No cervical lymphadenopathy. 5. Few tiny thyroid nodules.
[2024-12-22] MEDS: iohexol 350 mg/mL 500 mL Btl (per mL) IV (11:09)
== END 2024-12-22 10:51 | disposition home or self-care (01) ==
LOC: RAD 10:52
PROVIDERS: PCP Registered Nurse; Visit Provider Specialist
DX: R09.89 Other specified symptoms and signs involving the circulatory and respiratory systems (principal)
CPT/HCPCS: 70491

== ENCOUNTER 2024-12-25 10:47 | Outpatient (CLI) | payer OTHER, SELFPAY ==
--- NOTE | 2024-12-25 11:00 | FL_ITS ---
WS: [id number] Modified barium swallow, 12/25/2024 Clinical Data: Other dysphagia Comparison: None. Fluoroscopy time: 1min [id number] # of spot films: 0 Findings: The patient demonstrated premature spillage with a number of food items. There was spillage to the vallecula which cleared on double swallows. There was no aspiration or penetration. The barium tablet moved swiftly from the oral cavity through the hypopharynx into the mid esophagus. Then liquids were necessary to propel the barium tablet into the stomach. FL/FL barium swallow modifd [id number] Impression: 1. Premature spillage with numerous food items. 2. Negative for aspiration or penetration.
== END 2024-12-25 10:48 | disposition home or self-care (01) ==
LOC: RAD 10:49
PROVIDERS: PCP Registered Nurse; Visit Provider Specialist
DX: R09.89 Other specified symptoms and signs involving the circulatory and respiratory systems (principal); R93.89 Abnormal findings on diagnostic imaging of other specified body structures
CPT/HCPCS: 74230; 92611

== ENCOUNTER → 2025-01-22 09:50 | Outpatient (BNVA) | payer OTHER, SELFPAY | PROVIDERS: PCP Registered Nurse; Visit Provider Nurse Practitioner Women's Health | DX: E89.40 Asymptomatic postprocedural ovarian failure (principal); R53.83 Other fatigue | CPT/HCPCS: 80053; 82306; 82607; 82670; 82728; 82746; 83036; 83540; 84439; 84443; 85025 ==

== ENCOUNTER 2025-02-19 11:40 | Outpatient (CLI) | payer OTHER, SELFPAY ==
--- NOTE | 2025-02-19 11:45 | MR_ITS ---
WS: [id number] MRA ANGIOGRAPHY [place] HISTORY: G43.109 - Migraine with aura, not intractable, dizziness and headaches. COMPARISON: None available. TECHNIQUE: 3-D MR angiography is performed of the [place]. All images are reviewed including source images. Distal vertebral and basilar arteries are intact with no significant stenosis or plaque. Posterior cerebral arteries are normal course and caliber. Posterior communicating arteries are both patent. Intracranial portion of the internal carotid arteries are normal course and caliber. No significant atherosclerosis, stenosis or aneurysm identified. Middle and anterior cerebral arteries are both patent with no significant disease. Anterior communicating artery is also normal. MR/MR angio head wo con [id number] IMPRESSION: Normal MRA [place].
== END 2025-02-19 11:41 | disposition home or self-care (01) ==
LOC: RAD 11:42
PROVIDERS: Visit Provider Registered Nurse
DX: G43.109 Migraine with aura, not intractable, without status migrainosus (principal); H57.02 Anisocoria
CPT/HCPCS: 70544

== ENCOUNTER → 2025-08-13 14:42 | Outpatient (BNVA) | payer OTHER, SELFPAY | PROVIDERS: PCP Registered Nurse; Referring Provider Registered Nurse; Visit Provider Internal Medicine | DX: R07.9 Chest pain, unspecified (principal) | CPT/HCPCS: 93005 ==

== ENCOUNTER 2025-08-21 11:36 | Outpatient (CLI) | payer OTHER, SELFPAY ==
--- NOTE | 2025-08-21 | ECG_ITS ---
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 Baseline heart rate was 97 beats per minute. Baseline blood pressure was 120/87 millimeters of mercury. Target heart rate was 180 beats per minute. Maximum heart rate achieved was 180, which was 100% of the target heart rate. Maximum blood pressure was 161/100 millimeters of mercury. Total exercise time was 7 minutes 9 seconds. Maximum METs achieved was 10.2, maximum VO2 was 35.7. The reason for ending the test was maximal effort achieved. The patient complained of shortness of breath during the stress test, which then resolved at the end of the test. ELECTROCARDIOGRAM: BASELINE: Showed sinus rhythm, normal axis, no significant ST-T changes at the baseline noted. EXERCISE: At the peak exercise level, no significant ST-T changes suggestive of ischemia noted. RECOVERY: During the recovery period, heart rate dropped appropriately. No significant ST-T changes in the recovery suggestive of ischemia noted. CONCLUSION: 1. Exercise capacity fair. 2. Heart rate response was appropriate. 3. Blood pressure response was appropriate. 4. Symptoms not suggestive of ischemia. 5. Electrocardiogram portion of the stress test was not suggestive of ischemia. 6. Nuclear scan will be documented separately. Electronically Signed On 09-02-2025 20:37:44 CARPET LAYER by KODAK KELLOGG [email or web address]
[2025-08-21 12:00] VITALS: BMI 30.5
[2025-08-21 12:56] VITALS: BP 120/87; PULSE 106
== END 2025-08-21 11:37 | disposition home or self-care (01) ==
LOC: CDL 11:37
PROVIDERS: PCP Registered Nurse; Visit Provider Internal Medicine
DX: R07.9 Chest pain, unspecified (principal); R06.02 Shortness of breath
CPT/HCPCS: 93017

== ENCOUNTER 2025-09-04 10:07 | Outpatient (CLI) | payer OTHER, SELFPAY ==
--- NOTE | 2025-09-04 10:15 | USCV_ITS ---
Brennan Benjamin Age: 40 Gender: F : 1985 Exam Date: 09/04/2025 10:33 Ordering Phys: Jose Pennington M.D ([email or web address]) Technologist: YOHANA Exam Location: [facility] Indication: Cp, SoB BP: 120 / 68 HR: 64 Rhythm: Sinus Technical Quality: Adequate MEASUREMENTS (Male / Female) Normal Values 2D ECHO LV Diastolic Diameter PLAX 4.3 cm 4.2 - 5.9 / 3.9 - 5.3 cm IVS Diastolic Thickness 0.8 cm 0.6 - 1.0 / 0.6 - 0.9 cm IVS Systolic Thickness 0.9 cm LVPW Diastolic Thickness 1.0 cm 0.6 - 1.0 / 0.6 - 0.9 cm LVPW Systolic Thickness 1.0 cm LVOT Diameter 1.9 cm LV Ejection Fraction 2D Teich 18.0 % LV Ejection Fraction MOD 4C 65.8 % LV Ejection Fraction MOD 2C 66.6 % LV Ejection Fraction 2C AL 66.9 % LA Diameter 2.9 cm RA Systolic Volume 4C AL 35.9 ml RA Systolic Volume 4C MOD 34.1 ml LA Sys Volume AL 31.4 cm cubed LA Sys Volume Index AL 16.1 cm cubed/m squared Aorta at Sinotubular Diameter 2.1 cm M-MODE LA Ao Ratio MM 1.3 AV Cusp Separation MM 1.6 cm DOPPLER AV Peak Velocity 132.0 cm/s LVOT Peak Velocity 110.0 cm/s AV Area Cont Eq vti 2.3 cm squared AV Area Cont Eq pk 2.4 cm squared MV Peak Velocity 87.0 cm/s MV Area PHT 4.8 cm squared Mitral E to A Ratio 1.9 TV Peak Velocity 223.5 cm/s TR Peak Velocity 238.0 cm/s TR Peak Gradient 22.7 mmHg TV Peak E Velocity 97.0 cm/s PV Peak Velocity 82.0 cm/s FINDINGS Left Ventricle Normal left ventricular size, systolic function and wall thickness, with no regional wall motion abnormalities. Left ventricular ejection fraction is estimated at 60 %. Normal diastolic function. Right Ventricle Normal right ventricular size and systolic function. Right Atrium Normal right atrial size. Left Atrium Normal left atrial size. IA Septum Normal appearance of the interatrial septum. Mitral Valve Normal mitral valve structure. No mitral valve stenosis, trace regurgitation. Aortic Valve Normal aortic valve structure. No aortic valve stenosis or regurgitation. Tricuspid Valve Normal tricuspid valve structure. No tricuspid valve stenosis or regurgitation. Normal pulmonary pressure. Pulmonic Valve Normal pulmonic valve structure. No pulmonic valve stenosis or regurgitation. Pericardium No pericardial effusion. Aorta Normal diameter of the aortic root and ascending thoracic aorta. IVC Normal IVC diameter. CONCLUSIONS Normal left ventricular size, systolic function and wall thickness with ejection fraction of _ %. Normal right ventricular size and systolic function. No significant valvular abnormalities. There is no pericardial effusion. Right atrial pressure is around 5 mm of mercury. Cheng Davidson MD (Electronically Signed) Final Date: 04 September 2025 20:59 S
== END 2025-09-04 10:08 | disposition home or self-care (01) ==
LOC: RAD 10:08
PROVIDERS: PCP Registered Nurse; Visit Provider Internal Medicine
DX: R07.9 Chest pain, unspecified (principal); R06.02 Shortness of breath
CPT/HCPCS: 93306